=== PATIENT | female | born 1950 | race Caucasian/White ===

== ENCOUNTER 2020-12-14 01:52 | Emergency (ER) | payer MEDICARE ==
[2020-12-14] MEDS ORDERED: Tamsulosin 0.4 MG Cap.ER PO ONE (02:46)
[2020-12-14] MEDS ORDERED: Ketorolac 30 MG/ML SDV IVPUSH ONE ×2 (02:48→06:21)
[2020-12-14] MEDS ORDERED: Ondansetron 4 MG/2 ML SDV IVPUSH ONE (02:50)
--- NOTE | 2020-12-14 02:51 | EDM.PDOC ---
<Marybel Betts - Last Filed: 12/14/20 06:22> ED HPI GENERAL MEDICAL PROBLEM - General Chief Complaint: Flank Pain Stated Complaint: KIDNEY STONES Time Seen by Provider: 12/14/20 02:48 Source of Information: Reports: Patient History Limitations: Reports: No Limitations - History of Present Illness INITIAL COMMENTS - FREE TEXT/NARRATIVE: pt has severe pain in left flank. She has passed several stones in the past few days. She has been working on this for the past 2 days. She has had 2 stones in the past that were too large to pass. Onset: Gradual Duration: Hour(s): Location: Reports: Abdomen, Other (pt is having severe left flank pain) Associated Symptoms: Reports: Nausea/Vomiting Left Flank Pain Score (Numeric/FACES): 10 - Related Data Allergies Allergy/AdvReac Type Severity Reaction Status Date / Time No Known Allergies Allergy Verified 12/14/20 02:34 Home Meds: Home Meds Biotin 1 mg PO DAILY 12/14/20 [History] Calcium Carbonate [Calcium] 500 mg PO DAILY 12/14/20 [History] Pramipexole [Mirapex] 0.5 mg PO ASDIRECTED 12/14/20 [History] ED ROS GENERAL - Review of Systems Review Of Systems: See Below Constitutional: Reports: No Symptoms HEENT: Reports: No Symptoms Respiratory: Reports: No Symptoms Cardiovascular: Reports: No Symptoms Endocrine: Reports: No Symptoms GI/Abdominal: Reports: Abdominal Pain, Other (pain in the left flank area. ) : Reports: No Symptoms Musculoskeletal: Reports: No Symptoms Skin: Reports: No Symptoms ED EXAM, GI/ABD - Physical Exam Exam: See Below Text/Narrative:: Pt arrived with left cva pain. She has a long history of kidney stones. She has passed several stones in the past few days. This stone just not want to pass. Exam Limited By: No Limitations General Appearance: Alert, Anxious, Severe Distress Ears: Normal TMs Nose: Normal Inspection Throat/Mouth: Normal Inspection Head: Atraumatic Neck: Normal Inspection Respiratory/Chest: No Respiratory Distress Cardiovascular: Regular Rate, Rhythm GI/Abdominal Exam: Other (left flank pain. ) (Female) Exam: Cervical Discharge Rectal (Female) Exam: Deferred Back Exam: Normal Inspection Extremities: Normal Inspection Neurological: Alert, Oriented, Normal Cognition Course - Re-Assessments/Exams Free Text/Narrative Re-Assessment/Exam: 12/14/20 06:22 pt is having severe flank pain. --on the left. She got good relief with the torodol. She had a cat scan which shows 2 stones in the midureter the largest being 7 mm. She was advised this could be very difficult to pass. Departure - Departure Disposition: Home, Self-Care 01 Clinical Impression: Kidney stone - Discharge Information Instructions: Kidney Stones, [id number] Referrals: PCP,None [Primary Care Provider] - Forms: ED Department Discharge Additional Instructions: Take ibuprofen 400 mg every 6 hrs with food for pain relief. Drink ample amounts of fluids. Strain your urine and save any sediment/stones. Urology from [place] will call you later today to set up an appt. Take Flomax once daily to perhaps help with stone passage. Take Percocet for added pain relief. <Joel Brock - Last Filed: 12/14/20 08:25> Course - Vital Signs Last Recorded V/S: Last Vital Signs Temp 37.6 C 12/14/20 02:37 Pulse 73 12/14/20 03:49 Resp 14 12/14/20 03:49 BP 150/72 H 12/14/20 03:49 Pulse Ox 98 12/14/20 03:49 - Orders/Labs/Meds Orders: Active Orders 24 hr Category Date Time Status Sodium Chloride 0.9% [Normal Saline] 1,000 ml Med 12/14/20 03:00 Active IV ASDIRECTED Medication Orders Sodium Chloride (Normal Saline) 1,000 mls @ 999 mls/hr IV ASDIRECTED CONNER Last Admin: 12/14/20 02:55 Dose: 999 mls/hr Documented by: VIRGINIE Labs: Laboratory Tests 12/14/20 12/14/20 12/14/20 Range/Units 02:15 02:30 02:30 WBC 12.0 H (4.5-11.0) K/uL RBC 4.89 (3.30-5.50) M/uL Hgb 14.7 (12.0-15.0) g/dL Hct 44.3 (36.0-48.0) % MCV 91 (80-98) fL MCH 30 (27-31) pg MCHC 33 (32-36) % Plt Count 278 (150-400) K/uL Neut % (Auto) 68.9 H (36-66) % Lymph % (Auto) 18.4 L (24-44) % [place] % (Auto) 7.9 H (2-6) % Eos % (Auto) 4.2 H (2-4) % Baso % (Auto) 0.6 (0-1) % Sodium 141 (140-148) mmol/L Potassium 3.9 (3.6-5.2) mmol/L Chloride 105 (100-108) mmol/L Carbon Dioxide 24 (21-32) mmol/L Anion Gap 11.8 (5.0-14.0) mmol/L BUN 16 (7-18) mg/dL Creatinine 1.1 H (0.6-1.0) mg/dL Est Cr Clr Drug Dosing 44.55 mL/min Estimated GFR (MDRD) 49 L (>60) Glucose 117 H (74-106) mg/dL Calcium 9.0 (8.5-10.1) mg/dL Total Bilirubin 0.6 (0.2-1.0) mg/dL AST 26 (15-37) U/L ALT 30 (12-78) U/L Alkaline Phosphatase 110 (46-116) U/L Total Protein 7.0 (6.4-8.2) g/dL Albumin 3.5 (3.4-5.0) g/dL Globulin 3.5 (2.3-3.5) g/dL Albumin/Globulin Ratio 1.0 L (1.2-2.2) Urine Color Yellow (YELLOW) Urine Appearance Clear (CLEAR) Urine pH 5.0 (5.0-8.0) Ur Specific [place] >= 1.030 (1.008-1.030) Urine Protein Negative (NEGATIVE) mg/dL Urine Glucose (UA) Negative (NEGATIVE) mg/dL Urine Ketones Negative (NEGATIVE) mg/dL Urine Occult Blood Moderate H (NEGATIVE) Urine Nitrite Negative (NEGATIVE) Urine Bilirubin Negative (NEGATIVE) Urine Urobilinogen 0.2 (0.2-1.0) EU/dL Ur Leukocyte Esterase Trace H (NEGATIVE) Urine RBC 5-10 H (0-5) Urine WBC 5-10 H (0-5) Ur Epithelial Cells Few Amorphous Sediment Few Urine Bacteria Few Urine Mucus Not seen Meds: Medications Generic Name Dose Route Start Last Admin Trade Name Freq PRN Reason Stop Dose Admin Sodium Chloride 1,000 mls @ 999 mls/hr 12/14/20 03:00 12/14/20 02:55 Normal Saline IV 999 mls/hr ASDIRECTED CONNER Administration Discontinued Medications Generic Name Dose Route Start Last Admin Trade Name Marylou PRN Reason Stop Dose Admin Hydromorphone HCl 0.5 mg 12/14/20 06:20 12/14/20 06:29 Hydromorphone 0.5 Mg/0.5 Ml Syringe IVPUSH 12/14/20 06:21 0.5 mg ONETIME ONE Administration Ketorolac Tromethamine 30 mg 12/14/20 02:48 12/14/20 02:58 Ketorolac 30 Mg/Ml Sdv IVPUSH 12/14/20 02:49 30 mg ONETIME ONE Administration Ketorolac Tromethamine 15 mg 12/14/20 06:21 12/14/20 06:29 Ketorolac 30 Mg/Ml Sdv IVPUSH 12/14/20 06:22 15 mg ONETIME ONE Administration Ondansetron HCl 4 mg 12/14/20 02:50 12/14/20 03:06 Ondansetron 4 Mg/2 Ml Sdv IVPUSH 12/14/20 02:51 4 mg ONETIME ONE Administration Tamsulosin HCl 0.4 mg 12/14/20 02:46 12/14/20 03:06 Tamsulosin 0.4 Mg Cap.Er PO 12/14/20 02:47 0.4 mg ONETIME ONE Administration - Re-Assessments/Exams Free Text/Narrative Re-Assessment/Exam: 12/14/20 08:21 Feels pain is adequately relieved. Wants to go home and f/u with urology as an outpatient. Departure - Departure Time of Disposition: 08:22 Condition: Fair - Discharge Information *PRESCRIPTION DRUG MONITORING PROGRAM REVIEWED*: No *COPY OF PRESCRIPTION DRUG MONITORING REPORT IN PATIENT LEIDY: No Sepsis Event Note (ED) - Focused Exam Vital Signs: Vital Signs Temp Pulse Resp BP Pulse Ox 12/14/20 03:49 73 14 150/72 H 98 12/14/20 03:20 71 14 141/72 H 98 12/14/20 02:37 37.6 C 76 20 163/88 H 95 12/14/20 02:20 37.6 C 76 20 163/88 H 95
[2020-12-14] MEDS ORDERED: Sodium Chloride 0.9% 1,000 ML IV SCH (03:00)
--- NOTE | 2020-12-14 06:03 | CRLCT ---
For Patients: As a result of the 21st Century Cures Act, medical imaging exams and procedure reports are released immediately into your electronic medical record. You may view this report before your referring provider. If you have questions, please contact your health care provider. INDICATION: Left flank pain. COMPARISON: None available TECHNIQUE: CT examination of the abdomen and pelvis was performed without contrast enhancement using 2 mm thick axial sections from the lung bases through the pubic symphysis. Oral contrast was not administered. Please note that all CT scans at this facility use dose modulation, iterative reconstruction, and/or weight-based dosing when appropriate to reduce radiation dose to as low as reasonably achievable. 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 There is no sign of any small bowel obstruction. There is moderate sized fat containing peristomal hernia. There is moderate left hydronephrosis and left hydroureter extending to 2 calculi located at the mid S1 level at the level of the crossing of the iliac vessels. The larger, more distal calculus measures 7 x 5 millimeters. The smaller, more proximal calculus measures 4 x 4 millimeters. There is a nonobstructive 6 millimeter calculus in the interpolar left kidney. On the right, there are curvilinear calculi in the lower pole of the right kidney the larger measuring 7 millimeters in length, the smaller measuring 6 millimeters in length. There is no sign of right hydronephrosis, hydroureter, or ureterolithiasis. In the abdomen, the unenhanced liver, spleen, pancreas, and adrenals are normal in appearance. The unenhanced kidneys are normal in appearance. Clips are seen in the gall bladder fossa from cholecystectomy. The abdominal aorta is normal in caliber with no sign of dilatation. There is no sign of retroperitoneal mass or adenopathy. The stomach and loops of small bowel in the abdomen are normal in appearance. In the pelvis, the loops of small bowel are normal in caliber. As mentioned above, there are changes of total colectomy and rectal resection. The uterus and adnexal regions are normal in appearance. The urinary bladder is normal in appearance. There is no sign of pelvic or inguinal mass or adenopathy. There is no sign of free air or free fluid in the abdomen or pelvis. The lung bases are clear. The components of a right total hip prosthesis are in anatomic alignment with no sign of fracture, loosening, or dislocation. There is no sign of fracture of the [place] osseous structures. The left hip is normal in appearance. There is mild scoliosis of the lumbar spine convex towards the right. There is mild disc degenerative disease from L2 through L5. IMPRESSION: Moderate left hydronephrosis and left hydroureter extending to the S1 level produced by 2 mid ureteral calculi, the larger measuring 7 x 5 millimeters. Changes of total colectomy and rectal resection with satisfactory appearance of a ileostomy site in the right anterior upper pelvic wall. There is a moderate fat containing peristomal hernia. CT of the abdomen shows mild bilateral nonobstructive nephrolithiasis. Status post cholecystectomy with no sign of biliary ductal dilatation. CT of the pelvis shows no other abnormality, aside from changes of total colectomy and rectal resection. Please note that all CT scans at this facility use dose modulation, iterative reconstruction, and/or weight-based dosing when appropriate to reduce radiation dose to as low as reasonably achievable. Dictated by Kip Velasco MD @ 12/14/2020 6:02:[address] Kip Velasco @ Dec 14 2020 6:02AM
[2020-12-14] MEDS ORDERED: HYDROmorphone 0.5 MG/0.5 ML Syringe IVPUSH ONE (06:20)
== END 2020-12-14 08:58 | disposition home or self-care (01) ==
LOC: JP.ED 01:52
DX: N13.2 Hydronephrosis with renal and ureteral calculous obstruction (principal)
CPT/HCPCS: 36415; 74176; 80053; 81001; 85025; 96374; 96375; 96376; 99284; A9270; J1170; J1885; J2405; J7030

== ENCOUNTER 2024-02-18 21:13 | Emergency (ER) | payer MEDICARE ==
[2024-02-18 21:49] LABS: BASOPHILS ABSOLUTE AUTO 0.11 K/uL (0.00-0.10); BASOPHILS PERCENT AUTO 1.2 % (0.1-1.3); EOSINOPHILS ABSOLUTE AUTO 0.62 K/uL (0.00-0.40); EOSINOPHILS PERCENT AUTO 6.7 % (0.0-5.4); HEMATOCRIT 30.8 % (34.3-46.0); HEMOGLOBIN 10.3 g/dL (11.2-15.5); IMMATURE GRAN ABSOLUTE AUTO 0.03 K/uL (0.00-0.23); IMMATURE GRAN PERCENT AUTO 0.3 % (0.0-0.7); LYMPHOCYTES ABSOLUTE AUTO 2.48 K/uL (0.8-3.3); LYMPHOCYTES PERCENT AUTO 26.7 % (11.4-47.7); MEAN CORPUSCULAR HEMOGLOBIN 30.7 pg (31.6-35.5); MEAN CORPUSCULAR HGB CONC 33.4 g/dL (31.6-35.5); MEAN CORPUSCULAR VOLUME 91.7 fL (81.4-99.0); MONOCYTES PERCENT AUTO 9.7 % (3.3-12.6); NEUTROPHILS ABSOLUTE AUTO 5.15 K/uL (1.0-7.6); NEUTROPHILS PERCENT AUTO 55.4 % (40.0-78.1); PLATELET COUNT,PLT 211 K/uL (130-375); RED BLOOD CELL COUNT 3.36 M/uL (3.77-5.24); WHITE BLOOD CELL COUNT,WBC 9.3 K/uL (3.2-11.0)
[2024-02-18 22:04] LABS: ANION GAP 11.7 mmol/L (5.0-14.0); CALCIUM 8.8 mg/dL (8.5-10.1); EST CRCL DRUG DOSING (CG) 23.45 mL/min; POTASSIUM,K 3.7 mmol/L (3.6-5.2)
[2024-02-18 22:05] LABS: INR 1.1; PROTHROMBIN TIME 10.9 sec (9.2-10.6)
== END 2024-02-18 22:25 | disposition home or self-care (01) ==
LOC: JP.ED 21:13
DX: K51.019 Ulcerative (chronic) pancolitis with unspecified complications (principal); K92.2 Gastrointestinal hemorrhage, unspecified; Z86.16 Personal history of COVID-19; Z90.49 Acquired absence of other specified parts of digestive tract; Z79.82 Long term (current) use of aspirin; Z79.899 Other long term (current) drug therapy
CPT/HCPCS: 36415; 80048; 85025; 85610; 99284